=== PATIENT | male | born 1955 | race Two or more races ===

== ENCOUNTER 2021-05-01 09:45 | Inpatient (IN) | payer OTHER ==
[~2021-05-01] VITALS: Ht 149.9 cm; Wt 60.8 kg
== END 2021-05-09 14:26 | disposition home or self-care (01) | DRG 375 ==
LOC: ER 09:45 → MEDI 21:39
PROVIDERS: ADMIT Internal Medicine; ATTEND Internal Medicine
PROC: 30233N1 Transfusion of Nonautologous Red Blood Cells into Peripheral Vein, Percutaneous Approach (ICD-10-PCS; 2021-05-01)
PROC: BW21YZZ Computerized Tomography (CT Scan) of Abdomen and Pelvis using Other Contrast (ICD-10-PCS; 2021-05-01)
PROC: BW40ZZZ Ultrasonography of Abdomen (ICD-10-PCS; 2021-05-03)
PROC: 0DBN8ZX Excision of Sigmoid Colon, Via Natural or Artificial Opening Endoscopic, Diagnostic (ICD-10-PCS; principal; 2021-05-08)
PROC: 0DBP8ZX Excision of Rectum, Via Natural or Artificial Opening Endoscopic, Diagnostic (ICD-10-PCS; 2021-05-08)
DX: C20 Malignant neoplasm of rectum (principal); K62.5 Hemorrhage of anus and rectum; L03.115 Cellulitis of right lower limb; D12.5 Benign neoplasm of sigmoid colon; N40.0 Benign prostatic hyperplasia without lower urinary tract symptoms; D50.0 Iron deficiency anemia secondary to blood loss (chronic); K62.89 Other specified diseases of anus and rectum; B35.1 Tinea unguium; Z20.822 Contact with and (suspected) exposure to COVID-19; B95.1 Streptococcus, group B, as the cause of diseases classified elsewhere; B96.4 Proteus (mirabilis) (morganii) as the cause of diseases classified elsewhere